=== PATIENT | male | born 1970 | race American Indian/Alaskan Native ===

== ENCOUNTER 2020-10-27 23:06 | Emergency (ER) | payer OTHER ==
[2020-10-28 01:12] VITALS: BP 135/64
[2020-10-28] MEDS ORDERED: ACETAMINOPHEN 500 MG TAB PO ONE (02:03)
[2020-10-28] MEDS ORDERED: IBUPROFEN 600 MG TAB PO ONE (02:03)
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
== END 2020-10-28 03:17 | disposition home or self-care (01) ==
LOC: ED 23:06
DX: M62.830 Muscle spasm of back (principal); M54.42 Lumbago with sciatica, left side; M54.41 Lumbago with sciatica, right side; E11.9 Type 2 diabetes mellitus without complications; Z79.899 Other long term (current) drug therapy; V49.49XA Driver injured in collision with other motor vehicles in traffic accident, initial encounter; Y93.89 Activity, other specified; Y92.488 Other paved roadways as the place of occurrence of the external cause; Y99.8 Other external cause status
CPT/HCPCS: 99282